=== PATIENT | female | born 1955 | race Hispanic/Latino ===

== ENCOUNTER 2024-08-13 09:25 | Day surgery (SDC) | payer OTHER, MEDICAID ==
[2024-08-13] MEDS ORDERED: Acetaminophen 500 MG TAB ONE (10:22)
[2024-08-13] MEDS ORDERED: diphenhydrAMINE 25 MG CAP ONE (10:22)
[2024-08-13] MEDS: Acetaminophen 500 MG TAB PO SCH (10:23)
[2024-08-13] MEDS: diphenhydrAMINE 25 MG CAP PO SCH (10:23)
[2024-08-13 13:51] VITALS: BP 154/70; TEMP 98.2
== END 2024-08-13 13:52 | disposition home or self-care (01) ==
LOC: ONC/OP 09:25
PROVIDERS: ATTEND Internal Medicine Hematology & Oncology
DX: D64.9 Anemia, unspecified (principal); Z91.048 Other nonmedicinal substance allergy status; Z88.0 Allergy status to penicillin; Z88.8 Allergy status to other drugs, medicaments and biological substances
CPT/HCPCS: 36430; 86850; 86900; 86901; 86920; P9016